=== PATIENT | male | born 1980 | race American Indian/Alaskan Native ===

== ENCOUNTER 2017-07-17 10:39 | Emergency (ER) | payer OTHER ==
[2017-07-17 10:52] VITALS: BP 145/97
[2017-07-17] MEDS ORDERED: Ketorolac 30 MG/ML SDV IVPUSH ONE (11:24)
[2017-07-17] MEDS ORDERED: HYDROmorphone 0.5 MG/0.5 ML Syringe IVPUSH ONE (11:24)
--- NOTE | 2017-07-17 11:26 | EDM.PDOC ---
ED HPI GENERAL MEDICAL PROBLEM - General Chief Complaint: General Stated Complaint: RIGHT SIDE PAIN Time Seen by Provider: 07/17/17 11:10 Source of Information: Reports: Patient History Limitations: Reports: No Limitations - History of Present Illness INITIAL COMMENTS - FREE TEXT/NARRATIVE: Patient is a 37-year-old male who presents ED complaining of right lateral chest discomfort after coughing. Patient states he felt something pull on the right side and got really warm after this occurred. Patient was having a coughing fit prior to onset. Patient states symptoms of cough, runny nose, sinus congestion, sore throat started approximately 10 days ago. Last Monday he was diagnosed with strep throat clinically is started on amoxicillin. Patient states sinus congestion, postnasal drip, and cough have persisted. Sore throat decreased over 2 days. Symptoms have not drastically improved with the antibiotic therapy. There has been multiple individuals at the [facility] with similar symptoms. He has been working all week. Patient denies fever/chills , headache, body aches, shortness of breath, nausea/vomiting, abdominal pain, diarrhea, dysuria, rash to his body or any additional complaints. Patient has no past medical history and currently taking only amoxicillin. He has tried [id number] Mucinex on intermittent basis. No surgical history per patient. Denies any recreational drug use, smoking, or alcohol use. Right Flank Pain Score (Numeric/FACES): 9 - Related Data Allergies Allergy/AdvReac Type Severity Reaction Status Date / Time No Known Allergies Allergy Verified 07/17/17 10:47 Home Meds: Home Meds Acetaminophen/HYDROcodone [[place] 325-5 MG] 1 tab PO Q6H PRN #8 tablet 07/17/17 [ Rx] Orphenadrine [Norflex] 100 mg PO BID #20 tab.er 07/17/17 [Rx] Past Medical History - Past Health History Medical/Surgical History: Denies Medical/Surgical History HEENT History: Reports: Other (See Below) Other HEENT History: Diagnosis of strep on Monday last week Neurological History: Reports: Headaches, Chronic Social & Family History - Family History Family Medical History: Noncontributory - Tobacco Use Smoking Status *Q: Never Smoker - Caffeine Use Caffeine Use: Reports: None - Recreational Drug Use Recreational Drug Use: No ED ROS GENERAL - Review of Systems Review Of Systems: See Below Constitutional: Denies: Fever, Chills, Decreased Appetite HEENT: Reports: Rhinitis, Other (Sinus congestion). Denies: Ear Pain, Nose Pain , Throat Pain, Throat Swelling Respiratory: Reports: Cough. Denies: Shortness of Breath, Wheezing, Sputum Cardiovascular: Denies: Chest Pain (Right mid axillary line along the seventh through ninth rib) GI/Abdominal: Denies: Abdominal Pain, Constipation, Diarrhea, Nausea, Vomiting : Reports: No Symptoms Musculoskeletal: Denies: Back Pain Skin: Reports: No Symptoms Neurological: Denies: Dizziness, Headache, Numbness, Syncope, Tingling, Weakness ED EXAM, GENERAL - Physical Exam Exam: See Below Exam Limited By: No Limitations General Appearance: Alert, WD/WN, Mild Distress Eye Exam: Bilateral Eye: PERRL Ears: Normal External Exam, Normal Canal, Hearing Grossly Normal, Normal TMs Nose: Normal Inspection, Normal Mucosa, No Blood Throat/Mouth: Normal Inspection, Normal Oropharynx, Normal Voice, No Airway Compromise Neck: Normal Inspection, Supple, Non-Tender, Full Range of Motion. No: Lymphadenopathy (L), Lymphadenopathy (R) Respiratory/Chest: No Respiratory Distress, Lungs Clear, Normal Breath Sounds, No Accessory Muscle Use, Other (Tenderness along the right midaxillary line 7 through 9 rib. No swelling, bruising, or bony abnormalities noted. ) Cardiovascular: Normal Peripheral Pulses, Regular Rate, Rhythm, No Murmur Peripheral Pulses: 2+: Radial (R) GI/Abdominal: Normal Bowel Sounds, Soft, Non-Tender, No Organomegaly, No Distention, Other (No right upper quadrant tenderness) Back Exam: Normal Inspection Extremities: Normal Inspection, Non-Tender, No Pedal Edema, Normal Capillary Refill Neurological: Alert, Oriented, CN II-XII Intact, Normal Cognition, No Motor/ Sensory Deficits Psychiatric: Normal Affect, Normal Mood Skin Exam: Warm, Dry, Intact, Normal Color, No Rash Course - Vital Signs Last Recorded V/S: Last Vital Signs Temp 98.4 F 07/17/17 10:47 Pulse 101 H 07/17/17 10:47 Resp 20 07/17/17 10:47 BP 145/97 H 07/17/17 10:47 Pulse Ox 97 07/17/17 10:47 - Orders/Labs/Meds Meds: Medications Discontinued Medications Generic Name Dose Route Start Last Admin Trade Name Freq PRN Reason Stop Dose Admin Hydromorphone HCl 0.25 mg 07/17/17 11:24 07/17/17 11:40 Dilaudid IVPUSH 07/17/17 11:25 0.25 mg ONETIME ONE Administration Ketorolac Tromethamine 30 mg 07/17/17 11:24 07/17/17 11:37 Toradol IVPUSH 07/17/17 11:25 30 mg ONETIME ONE Administration - Re-Assessments/Exams Free Text/Narrative Re-Assessment/Exam: Ordered chest x-ray one view, Dilaudid 0.25 mg IVP, and Toradol 30 mg IVP. 07/17/17 12:02 chest x-ray reviewed with Dr. Rosado with no acute bony abnormalities noted. Poor inspiration effort. No findings concerning for pneumonia. Etiology of current complaint may be associated with the rib fracture that was not visualized. Most likely related to cartilaginous tear/ muscle strain with coughing fit. Treatment is pain management and Mucinex. Will discharge patient home with instructions as documented. Departure - Departure Time of Disposition: 12:11 Disposition: Home, Self-Care 01 Condition: Good Clinical Impression: Right-sided chest wall pain Intercostal muscle strain Qualifiers: Encounter type: initial encounter Qualified Code(s): S29.011A - Strain of muscle and tendon of front wall of thorax, initial encounter - Discharge Information Prescriptions: Acetaminophen/HYDROcodone [[place] 325-5 MG] 1 tab PO Q6H PRN #8 tablet PRN Reason: Pain (Severe 7-10) Orphenadrine [Norflex] 100 mg PO BID #20 tab.er Instructions: Chest Wall Pain, [id number], Muscle Strain, [id number] Referrals: PCP,Not In Area [Primary Care Provider] - Forms: ED Department Discharge, ED Return to Work/School Form Additional Instructions: As discussed you have a strain to the intercostal muscles that attach the ribs together. Commonly injured with coughing fits. Treatment is symptomatic care including: Pain control with Tylenol 650 mg every 6 hours and ibuprofen 600 mg every 4 hours in alternating fashion, warm compresses to the affected area, refrain from any activities that cause worsening pain, Norflex 100 mg twice a day to help with muscle spasms, and pain relief with [place] one tab every 6 hours for severe pain not managed with the additional therapies. Do not take [place] and Tylenol together. See a occupational med provider for modification of job duties if required. Follow-up with PCP in the next 7-10 days for reevaluation if symptoms are not drastically improving. Ensure taking a deep breath every hour to minimize risk of developing pneumonia. Suggest taking Mucinex 600 mg twice a day with copious amounts of water until cough has subsided. Return to ED for any new or worsening symptoms. No driving today nor while taking the [place] and/or Norflex.
--- NOTE | 2017-07-17 12:33 | CR ---
Chest: Frontal view of the chest was obtained. Comparison: No previous study. Slightly limited inspiratory effort is seen. Lungs are felt to be clear. Heart size and mediastinum are felt to be within normal limits. Mild deformity is seen of the right clavicle likely representing old injury. Impression: 1. Incidental findings as described above. Nothing acute is identified. Diagnostic code #2
== END 2017-07-17 13:15 | disposition home or self-care (01) ==
LOC: JD.ED 10:39
DX: S29.011A Strain of muscle and tendon of front wall of thorax, initial encounter (principal); X50.9XXA Other and unspecified overexertion or strenuous movements or postures, initial encounter
CPT/HCPCS: 71010; 96374; 96375; 99285; J1170; J1885; 99284